=== PATIENT | male | born 1965 | race African-American/Black ===

== ENCOUNTER → 2018-02-05 | Outpatient (CLI) | payer OTHER | END | disposition home or self-care (01) | LOC: CDC 14:01 | DX: Z01.810 Encounter for preprocedural cardiovascular examination (principal); K40.90 Unilateral inguinal hernia, without obstruction or gangrene, not specified as recurrent; R00.1 Bradycardia, unspecified; R94.31 Abnormal electrocardiogram [ECG] [EKG] | CPT/HCPCS: 93000 ==

== ENCOUNTER 2018-02-06 09:32 | Day surgery (SDC) | payer OTHER ==
[~2018-02-06] VITALS: Ht 182.9 cm; Wt 92.1 kg
[2018-02-06 10:10] VITALS: BP 149/81
== END 2018-02-06 12:05 | disposition home or self-care (01) ==
LOC: SDC
PROC: 0WJFXZZ Inspection of Abdominal Wall, External Approach (ICD-10-PCS; principal; 2018-02-06)
DX: K40.90 Unilateral inguinal hernia, without obstruction or gangrene, not specified as recurrent (principal); Z53.09 Procedure and treatment not carried out because of other contraindication; R94.31 Abnormal electrocardiogram [ECG] [EKG]
CPT/HCPCS: 93005; J0690

== ENCOUNTER 2018-02-19 10:12 | Day surgery (SDC) | payer OTHER ==
[~2018-02-19] VITALS: Ht 180.3 cm; Wt 90.7 kg
[2018-02-19 10:42] VITALS: BP 131/82
[2018-02-19] MEDS ORDERED: DILAUDID4 MG PO (16:54)
[2018-02-19] MEDS ORDERED: ONDANSETRON HCL8 MG PO (16:54)
[2018-02-19] MEDS ORDERED: COLACE100 MG PO (16:54)
[2018-02-19 18:24] VITALS: BP 120/64
[2018-02-19 20:00] VITALS: BP 134/75
[2018-02-19 23:47] VITALS: BP 137/74
[2018-02-20 04:03] VITALS: BP 135/70
[2018-02-20 06:45] LABS: HEMATOCRIT 39.1 % (38.0-50.0); HEMOGLOBIN 13.4 G/DL (12.5-16.6); MCH 31.2 PG (29.0-34.0); MCHC 34.3 G/DL (30.0-36.0); MCV 91.1 FL (86-99); PLATELET COUNT 194 K/uL (156-360); RBC DIS.WIDTH-CV 12.5 % (11.8-14.6); RBC DIS.WIDTH-SD 41.3 % (39-53); RED BLOOD COUNT 4.29 M/uL (4.00-5.50); WHITE BLOOD COUNT 10.3 K/uL (4.1-10.2)
[2018-02-20 07:05] VITALS: BP 119/58
== END 2018-02-20 09:26 | disposition home or self-care (01) ==
LOC: SDC 10:12 → 2EAST 16:52 → 2SOUTH 16:52 → ENRESERV 16:53 → 2EAST 18:13
PROVIDERS: Surgery
DX: K40.20 Bilateral inguinal hernia, without obstruction or gangrene, not specified as recurrent (principal); D17.6 Benign lipomatous neoplasm of spermatic cord; F17.200 Nicotine dependence, unspecified, uncomplicated; Z83.3 Family history of diabetes mellitus
CPT/HCPCS: 85027; 88305; C1781; G0378; J0131; J0690; J1100; J1170; J1885; J2250; J2405; J2710; J2765; J7120; S0020; S0028